=== PATIENT | female | born 1960 ===

== ENCOUNTER 2016-12-22 09:47 | Day surgery (SDC) | payer OTHER ==
[2016-12-19 14:37] VITALS: BMI 29.6
[2016-12-22] MEDS ORDERED: Lactated Ringer's 1,000 ML IV ONE ×2 (10:35→13:50)
[2016-12-22] MEDS ORDERED: Lidocaine 1% Inj (20ml) IJ ONE (11:14)
[2016-12-22] MEDS ORDERED: Bupivacaine 0.5% 50 ML IJ ONE ×2 (11:14→14:26)
[2016-12-22] MEDS ORDERED: Sodium Chloride 0.9% 1,000 ML IV SCH (11:15)
[2016-12-22] MEDS ORDERED: ceFAZolin 2 GM in Sodium Chloride 0.9% 100 ML IVPB ONE (11:18)
--- NOTE | 2016-12-22 11:21 | CP.SDSHP ---
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 for a procedure on her Right foot to correct hallux abductovalgus, hammering of the 2nd digit and hypermobility of the 2nd digit. Pt tolerated the procedure well and the anesthesia well. Pt's dressing is intact. INSTRUMENT LENS GRINDER: < 3 sec to right foot digits. Pt already recieved medications from 's office. Pt to remain nonwight bearing to the RLE and use crutches. Pt demonstrated verbal understanding. Pt to follow up in 's office - Date & Time Date: 12/22/16 Time: 12:00 Short Stay Discharge - Short Stay Discharge Admitting Diagnosis/Reason for Visit: M20.11 M21.611 Disposition: HOME/ ROUTINE Referrals: Kenzie Pickard MD [Primary Care Provider] -
--- NOTE | 2016-12-22 11:27 | CP.PCM.PN ---
Subjective - Date & Time of Evaluation Date of Evaluation: 12/22/16 Time of Evaluation: 11:22 - Subjective Subjective: 56 y/o female with no PMHx seen at bedside in [facility] for a surgical correction of HAV, hammertoe and hypermobile 1st ray of the right foot. Pt states that she has been NPO since 10-10:30 last night. Pt denies of any recent F/N/V/C/SOB. Pt denies of any new pedal complains at this time. PMHx: denies PSHx: and Appendectomy SHx: denies Allergies: N.K.D.A Objective - Vital Signs/Intake and Output Vital Signs (last 24 hours): Temp Pulse Resp BP Pulse Ox 98.5 F 71 20 154/91 H 97 12/22/16 10:36 12/22/16 10:36 12/22/16 10:36 12/22/16 10:36 12/22/16 10:36 - Medications Medications: Current Medications Bupivacaine HCl (Marcaine 0.5% 50 Ml) 50 ml IJ ONCE ONE Stop: 12/22/16 11:15 Sodium Chloride (Sodium Chloride 0.9%) 1,000 mls @ 110 mls/hr IV .Q9H6M TENA Stop: 12/23/16 11:16 Cefazolin Sodium 2 gm/ Sodium (Chloride) 100 mls @ 100 mls/hr IVPB ONCE ONE Stop: 12/22/16 12:17 Lidocaine HCl (Lidocaine 1% (20ml)) 20 ml IJ ONCE ONE Stop: 12/22/16 11:15 - Constitutional Appears: Well, Non-toxic, No Acute Distress - Extremities Exam Additional comments: Right lower extremity focused: VASC: DP/PT pulses are palpable 2/4, [employer]: < 3sec to all digits, TG: warm to cool from proximal to distal, no pitting or non-pitting edema noted DERM: no open lesions, no interdigital maceration, no erythema, no clinical suspicion of any infection NEURO: protective sensation grossly intact: ORTHO: Hammering 2nd digit on the right foot, hypermobile 1st ray, no pain on palpation or ROM of the 1st ray as well as 1st MTPJ - Neurological Exam Neurological Exam: Alert, Awake, Oriented x3 - Psychiatric Exam Psychiatric exam: Normal Affect, Normal Mood Assessment and Plan - Assessment and Plan (Free Text) Assessment: 56 y/o male seen at bedside in [facility] for correction of hypermobility of the 1st ray, hallux abductovalgus, hammer toe of the 2nd digit on the right foot Plan: Pt was seen and examined in [facility] Pt NPO status was confirmed All Pre-op testing and clearance was in the chart Pt has exhausted all conservative treatment at this time and is opting for surgical intervention Pt was explained procedure and post-operative course All pt's questions were answered to satisfaction No guarantees were made Pt understands all risks, benefits and complications of procedure Pt will follow-up with
[2016-12-22] MEDS ORDERED: Lidocaine 1% Inj (20ml) ONE (11:39)
[2016-12-22] MEDS ORDERED: Bupivacaine 0.5% Inj(30mL) ONE (11:39)
[2016-12-22] MEDS ORDERED: Midazolam 2 MG/2 ML VIAL ONE (12:18)
[2016-12-22] MEDS ORDERED: Rocuronium 10 mg/ml (5 ml) ONE (12:18)
[2016-12-22] MEDS ORDERED: Propofol 10 mg/ml Inj (20 ML) ONE (12:18)
[2016-12-22] MEDS ORDERED: Neostigmine Methylsulfate 3mg/3ml Syringe IV ONE (12:18)
[2016-12-22] MEDS ORDERED: Succinylcholine 200 mg/10 ml Inj IV ONE (12:25)
[2016-12-22] MEDS ORDERED: Phenylephrine 10 mg/ml Inj ONE (13:21)
[2016-12-22] MEDS ORDERED: Oxycodone/Acetaminophen 5/325 mg Tab PO PRN ×2 (15:10→15:12)
--- NOTE | 2016-12-22 15:16 | PCM.SURG1 ---
Surgeon's Initial Post Op Note - Surgeon's Notes Surgeon: Dr. Shaver Bee Tender: LUIS Bales PGY-3; LUIS Dunn PGY-2 Type of Anesthesia: General Endo Anesthesia Administered By: Dr. 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 Hemostasis: PAT at 250mmHg. Materials: Arthrex 4-hole Lapidus T plate; Arthrex 3.0 x 10mm locking screw; 3.0 x 12mm locking screw; 3.0 x 32mm locking screw; 3.0 x 32mm cannulated screw; 3.0 x 34mm cannulated screw; 0.062 inch K-wire; 2-0 vicryl; 3-0 vicryl; 4-0 nylon; xeroform; DSD; webril; posterior splint; MICHELLE bandages. Injectables: 10cc 0.5% Marcaine plain post-operatively. Condition: Stable Post-Operative Diagnosis: Same as above Operation Performed: Right foot- Silver bunionectomy; Lapidus with plate and screw fixation; 2nd digit PIPJ arthroplasty and 2nd MPJ capsulotomy with K-wire fixation Specimen/Specimens Removed: Bone (1st metatarsal), Right foot Estimated Blood Loss: EBL {In ML}: 2 Blood Products Given: N/A Drains Used: No Drains Post-Op Condition: Good Date of Surgery/Procedure: 12/22/16 Time of Surgery/Procedure: 12:30
[2016-12-22] MEDS ORDERED: Lactated Ringer's 1,000 ML IV SCH (15:26)
[2016-12-22] MEDS ORDERED: HYDROmorphone 0.5 mg/0.5 ml ISec IVP PRN (15:26)
[2016-12-22 16:18] VITALS: RESP 18
[2016-12-22 16:54] VITALS: O2SAT 96
[2016-12-22 17:42] VITALS: BP 131/71; PULSE 73; TEMP 97.7
--- NOTE | 2016-12-23 12:30 | RAD ---
PROCEDURE: Right Foot Radiographs. HISTORY: s/p R foot surgery COMPARISON: None. FINDINGS: BONES: Status post fixation of medial cuneiform to 1st metatarsal with plate and screw device. Osteotomy distal aspect 2nd proximal phalanx. Surgical pin extends through 2nd digit into metatarsal head. JOINTS: Normal. SOFT TISSUES: Normal. OTHER FINDINGS: None. IMPRESSION: Postoperative changes as above. Orthopedic hardware appears intact.
--- NOTE | 2017-01-01 16:08 | OP ---
DOS:12/22/2016 Surgeon: Derek Shaver DPM, I Contract Loader: Dr. Tobias, Lissette Leone DPM, I Preoperative diagnosis: 1)Right foot 2)Hallux valgus and hypermobile first grade 3)Hammered toe second digit with dislocation of second metatarsal phalangeal joint Postoperative diagnosis: 1)Right foot 2)Hallux valgus and hypermobile first grade 3)Hammered toe second digit with dislocation of second metatarsal phalangeal joint Procedure: 1)Lapidus fusion of first metatarsal cuneiform joint with arthrex screw and plate system 2)Solar bunionectomy 3)Extensor hallucis longus tendon lengthening 4)Arthroplasty repair of second digit with K-wire fixation 5) Tenotomy and capsulotomy second metatarsal phalangeal joint Anesthesia: General Hemostasis: Ankle tourniquet at 250 mL of mercury per 90 minutes. Operative Technique: Patient was brought to operating room and positioned in operating room table. After induction of anesthesia administered by the anesthesiologist, the patient was prepped and draped in the usual sterile manner. A bandage was used to exsanguinate the foot and ankle, and the tourniquet was inflated. The leg was rotated so that the medial aspect of the foot was facing up. A curvilinear incision was made, extending from the dorsal medial aspect of the metatarsal cuneiform joint to the medial aspect of the metatarsal and extending medially to the metatarsal phalangeal joint. The incision was then deepened through the subcutaneous layer via sharp and blunt meticulous dissection. All bleeders encountered were clamped, cut, and coagulated with a Bovie. No major, no vascular obstructions were encountered. A linear incision was made into the capsular line of the metatarsal phalangeal joint. The head of metatarsal was then freed from the soft tissue attachments. Utilizing a power sagittal saw, the medial eminence of the first metatarsal was resected, as well as the dorsal eminence was resected. The areas were then smoothed. The tibial sesamoid was then identified and retracted in a plan toward direction. The fibular sesamoid was then identified deep within the surgical field. Utilizing a 15 blade, the fibular sesamoidal ligament and the insertion of the abductor tendon were released thereby completing lateral release and allowing the metatarsal phalangeal joint to move into a more rectus position. The tension was then directed proximally to the metatarsal cuneiform joint. A linear incision was made into the capsule and the joint was identified, utilizing a sharp and blunt dissection the soft tissue was dissected off of the joint. Utilizing a power sagittal saw, the base of the metatarsal and the head of the cuneiform were resected with a slight laterally based wedge taken from the metatarsal. The resultant wedge of bone and articulating cartilage was removed. The area was inspected to make sure that all of the cartilage had been removed. The surgical sites were irrigated with a sterile saline solution. The metatarsal cuneiform joint was then reduced and a temporary fixation with a 0.062 K wire was driven. Intraoperative fluoroscopy was utilized to confirm that intermetatarsal angle has been reduced properly, that there was no elevation or declination of the metatarsal, and that there was good opposition of the metatarsal and cuneiform. Next, a 3.0 partially threaded cannulated arthrex screw was driven from the metatarsal medially into the cuneiform and then into the middle cuneiform. A second screw was then driven from dorsal distal in the metatarsal to plantar proximal through the metatarsal cuneiform joint. Intraoperatively fluoroscopy was utilized to confirm proper placement of the screws and proper positioning for the fusion. A 3 hole arthrex rapid distaste was then applied medially, only two of the holes were utilized, as one of the holes caused a against the previously driven screws. The plate and the screws were noted to be in solid position. The surgical site was then irrigated with sterile saline solution. The capsule was repaired at the proximal site with 2-0 vicryl suture, attention was directed to the distal site. A capsulorrhaphy was performed, and the capsulorrhaphy and the remainder of the capsule were repaired with 2-0 vicryl suture. The subcutaneous layer was repaired with 3-0 vicryl suture and the skin was repaired with 4-0 nylon suture throughout the incision of the first grade. Derek Shaver DPM
== END 2016-12-22 18:07 | disposition home or self-care (01) ==
LOC: H.OPSURG 09:47
PROVIDERS: ATTEND Podiatrist Foot & Ankle Surgery
DX: M20.11 Hallux valgus (acquired), right foot (principal); M20.41 Other hammer toe(s) (acquired), right foot; M24.374 Pathological dislocation of right foot, not elsewhere classified; M21.611 Bunion of right foot